=== PATIENT | female | born 1995 | race Caucasian/White ===

== ENCOUNTER 2024-11-12 14:31 | Emergency (ER) | payer BC, SELFPAY ==
--- OUTSIDE RECORDS SUMMARY | 2024-10-21 14:00 | XMS_ITS | Encounter Summary ---
Author Organization [facility] Address [address] [place] [address]. [place] [address] Care Team Providers Care Windshield Repair Technician Name Role Phone No Ref-Primary, Physician Primary Care Provider Chiqui Johnson APRN SWAHILI TEACHER Unavailable [phone] Uriel Borjas MD Unavailable Nely Etienne PA-C Unavailable Renetta Rudolph APRN SWAHILI TEACHER Unavailable [phone] Inna Arriaga MD Unavailable [phone] Reason for Referral * Diagnostic Imaging Ultrasound (Routine) - Pending Review Specialty Diagnoses / Procedures Referred By Conthardepe t Referred To Contact Radiology. Diagnoses care, subsequent , unspecified trimester Procedures US OB <14 Weeks w Transvaginal Single ([id number]) Inna Arriaga MD [address] [place] [address] Phone: tel: fax: Referral ID Status Reason Start Date Expiration Date V isits Requested Visits Authorized [id number] Pending Review 10/21/2024 10/21/2025 1 1 Reason for Visit * Reason Comments Care Encounter Details Date Type Department Care Team (Late st Contact Info) Description 10/21/2024 2:00 PM CDT Virtual Visit [facility] [address] [place] [address] care, subsequent , unspecified trimester (Primary Dx) Social History Tobacco Use Types Packs/Day Years Used Date Smoking Tobacco: Former Cigarettes Q uit: 01/10/2023 Pipe Cigars Passive Smoke Exposure: Past Smokeless Tobacco: Former Quit: 01/10/2023 Alcohol Use Standard Drinks/Week Comments Not Currently 0 (1 standard drink = 0.6 oz pur e alcohol) Maybe a drink every 2 months Social Connection and Isolat ion Panel [NHANES] Answer Date Recorded Frequency of Communication w ith Friends and Family Not on file 07/19/2024 How often do you get togethe r with friends or relatives? More than three times a week 07/19/2024 Attends Spiritism Services Not on file 07/19 Active Member of Clubs or Organizations Not on f ile 07/19/2024 Attends Club or Organization Meetings Not on lenin e 07/19/2024 Marital Status Not on file 07/19/2024 PHQ-2 Answer Date Recorded PHQ-2 Score 0 07/20/2024 [facility] - Occupational Stress Questionnaire Answer Date Recorded Do you feel stress - tense, restless, nervous, or anxious, or unable to sleep at night because your mind is troubled all the time - these days? Only a little 07/19/2024 Exercise Vital Sign Answer Date Recorde d On average, how many days pe r week do you engage in moderate to strenuous exercise (like a brisk walk)? 4 days 07/19/2024 On average, how many minutes do you engage in exercise at this level? 60 min 07/19/2024 Food Insecurity Answer Date Recorded Within the past 12 months, d id you worry that your food would run out before you got money to buy more? No 07/19/2024 Within the past 12 months, d id the food you bought just not last and you didn t have money to get more? No 07/19/2024 Housing Stability Answer Date Recorded Do you have housing? (Housin g is defined as stable permanent housing and does not include staying outside in a car, in a tent, in an abandoned building, in an overnight [place] [facility], or couch-surfing.) No 07/19/2024 Are you worried about losing your housing? No 07/19/2024 Financial Resource Strain Answer Date R ecorded Within the past 12 months, h ave you or your family members you live with been unable to get utilities (heat, electricity) when it was really needed? No 07/19/2024 Transportation Needs Answer Date Record ed Within the past 12 months, h as lack of transportation kept you from medical appointments, getting your medicines, non-medical meetings or appointments, work, or from getting things that you need? No 07/19/2024 Estimated Date of Delivery Comme nts Yes 06/28/2025 Based on last me nstrual period of 09/21/2024 (Exact Date), regular- every 32 days Sex and Gender Information Value Date Recorded Sex Assigned at Female 03/30/2024 8:24 AM CDT Legal Sex Female 10:27 AM CDT Gender Identity Female 03/30/2024 8:24 AM CDT Sexual Orientation Straight 03/30/2024 8: 24 AM CDT Occupation Industry Job Start Date Job End Date not working Not on file Not on file Not on file documented as of this encounter Progress Notes * Sheryl Espinoza RN - 10/21/2024 2:00 PM CDT NPN nurse visit done over the phone. Pt will be given NPN folder and book at her upcoming appt. Discussed optional screening available to assess chromosomal anomalies. Questions answered. Informed pt of the clinic structure (on-call does deliveries for the day, may be male or female doctor). Ptadvised to call the clinic if she has any questions or concerns related to her . labs will be obtained at her upcoming appt. New visit scheduled on 11/12/[address] Arriaga. 4w2d Menstrual cycles: regular every 32 days Date of positive test: 10/17/24 Medications stopped upon pos HPT: none Last pap: 11/11/23 NIL Does not want to know gender. May be moving to [place]. Patient supplied answers from flow sheet for: OB Questionnaire. Past Medical History Have you ever recieved care for your mental health? : No Have you ever been in a major accident or suffered serious trauma?: No Within the last year, has anyone hit, slapped, kicked or otherwise hurt you?: No In the last year, has anyone forced you to have sex when you didn't want to?: No Past Medical History 2 Have you ever received a blood transfusion?: No Would you accept a blood transfusion if was medically recommended?: Yes (prefers that she get her husbands blood, same blood type) Does anyone in your home smoke?: (!) Yes Is your blood type Rh negative?: No Have you ever breastfed?: (!) Yes Have you been hospitalized for a nonsurgical reason excluding normal delivery?: No Have you ever had an abnormal pap smear?: No Past Medical History (Continued) Do you have a history of abnormalities of the uterus?: No Did your mother take PHYLICIA or any other hormones when she was with you?: Unknown Do you have any other problems we have not asked about which you feel may be important to this ?: No documented in this encounter Plan of Treatment Upcoming Encounters Date Type Department Care Team (Late st Contact Info) Description 11/17/2024 11:00 AM CDT Ancillary Procedure [address] [place] [address] 11/17/2024 11:45 AM CDT Lab [facility] [address] [facility] [address] [place] [phone] 12/03/2024 1:00 PM CDT Office Visit [facility] [address] [place] [address] Inna Arriaga MD [address] [place] [address] Scheduled Orders Name Type Priority Associated Diagnoses Orde r Schedule ABO/Rh type and screen Lab Panel Routine care, subsequent , unspecified trimester Expected: 10/21/2024, Expires: 10/21/2025 Hepatitis B surface antigen Lab Routine care, subsequent , unspecified trimester Expected: 10/21/2024, Expires: 10/21/2025 CBC with platelets Lab Routine care, subsequent , unspecified trimester Expected: 10/21/2024, Expires: 10/21/2025 HIV Antigen Antibody Combo Lab Routine care, subsequent , unspecified trimester Expected: 10/21/2024, Expires: 10/21/2025 Rubella Antibody IgG Lab Routine care, subsequent , unspecified trimester Expected: 10/21/2024, Expires: 10/21/2025 Treponema Abs w Reflex to RPR and Titer Lab Routine care, subsequent , unspecified trimester Expected: 10/21/2024, Expires: 10/21/2025 Urine Culture Aerobic Bacterial Microbiology Routine care, subsequent , unspecified trimester Expected: 10/21/2024, Expires: 10/21/2025 Hemoglobin A1c Lab Routine care, subsequent , unspecified trimester Expected: 10/21/2024, Expires: 10/21/2025 US OB <14 Weeks w Transvaginal Single ([id number]) Imaging Routine care, subsequent , unspecified trimester Expected: 10/21/2024, Expires: 01/19/2025 Hepatitis C Screen Reflex to HCV RNA Quant and Genotype Lab Routine care, subsequent , unspecified trimester Expected: 10/21/2024 (Approximate), Expires: 10/21/2025 documented as of this encounter Visit Diagnoses Diagnosis care, subsequent , unspecified trimester- Primary documented in this encounter Care Teams Windshield Repair Technician Relationship Specialty Start Date End Date No Ref-Primary, Physician PCP - General 03/10/24 Chiqui Johnson, EVAPORATOR OPERATOR SWAHILI TEACHER [address] [place] [address] Assigned PCP 04/15/24 Uriel Borjas MD [address] [facility] [address] [place] [address] Allergy & Immunology 07/21/24 Nely Etienne PA-C [address] [facility] [place] [address] Physician Printing Table Hand retail stock clerk 07/21/24 Renetta Rudolph APRN CNP [address] [facility] [address] [place], [place] [address] Assigned OBGYN Provider 10/14/24 Inna Arriaga MD [address] [place] [address] retail stock clerk 10/19/24 documented as of this encounter
[2024-11-12 14:39] VITALS: BP 108/72; PULSE 91; RESP 16; TEMP 36.5; O2SAT 97; BMI 29.0
[2024-11-12] MEDS: ONDANSETRON 2 MG/ML inj 4 MG IVP (15:46)
[2024-11-12] MEDS: 0.9 % SODIUM CHLORIDE 1000 ml 1,000 ML IV (15:46)
[2024-11-12 15:51] LABS: Basophils Absolute Auto 0.02 K/uL (0.00-0.30); Basophils Percent Auto 0.2 % (0.0-3.0); Eosinophils Absolute Auto 0.02 K/uL (0.00-0.50); Eosinophils Percent Auto 0.2 % (0.0-7.0); Hematocrit 37.7 % (33.0-51.0); Hemoglobin* 12.7 gm/dL (12.0-16.0); Immature Granulocytes Abs Auto 0.01 K/uL (0.00-0.30); Immature Granulocytes Pct Auto 0.1 %; Lymphocytes Percent Auto 10.5 % (20-44); Mean Corpuscular HGB Conc 34 gm/dL (32-36); Mean Corpuscular Hemoglobin 31 pg (26-34); Mean Corpuscular Volume 92 fL (80-100); Monocytes Percent Auto 4.6 % (0.0-11.0); Neutrophils Percent Auto 84.4 % (42.0-72.0); Platelet Count* 304 K/uL (140-440); RDW Coefficient of Variation % 13.6 % (11.5-15.5); White Blood Count* 8.07 K/uL (4.50-11.00)
--- NOTE | 2024-11-12 15:51 | ED_ITS ---
HPI - General Adult General Chief complaint: Nausea/Vomiting Stated complaint: 6 weeks , vomiting Time Seen by Provider: 11/12/24 15:21 Source: patient Mode of arrival: ambulatory Limitations: no limitations History of Present Illness HPI narrative: 29-year-old female at 6-7 weeks gestation presenting today with vomiting and nausea. Patient states she has had nausea throughout her entire b ut the vomiting started today. She vomited multiple times and unable to keep anything down. She denies fevers or chills. She denies any new abdominal pain. She denies vaginal discharge states that she has rare small amount of vaginal spotting that is been present throughout the entire . She describes it as pink spots every now and then. She denies any sick contacts that she is aware of. No blood in her vomitus. No diarrhea. No dysuria, increased urinary frequency or urgency. Patient also complains of a migraine headache she has had for 3 days. She denies this being new, does state that she has a history of migraines. Has not been able to take anything for it as she does not know what she can safely take while . Complains of light sensitivity. No confusion, difficulty with word finding or forming sentences. Denies any neurologic deficits. Related Data Previous Rx's ?Medication ?Instructions ?Recorded ondansetron HCl 4 mg tablet 4 mg PO TID PRN nausea and 11/12/24 vomiting #10 tabs Allergies Allergy/AdvReac Type Severity Reaction Status Date / Time ciprofloxacin (From Cipro) Allergy Intermediate Verified 11/12/24 14:37 Review of Systems Status of ROS: Reports: 10 or more systems reviewed and unremarkable except as noted in History and below Exam Narrative: Exam Narrative: Well-nourished well-developed patient in no acute distress. Alert and oriented. Answers questions appropriately. Mood and affect are appropriate. Thoughts are goal oriented and rational. No tangential or magical thinking noted. Patient speaks in full sentences without needing to catch her breath. HEENT: Normocephalic atraumatic. Pupils are equally round reactive to light. Extraocular muscles are intact. Conjunctivae are moist without any icterus noted. Moist mucous membranes. Cardiovascular: Heart is regular rate and rhythm S1 and S2 are present without any murmurs. Lungs: Clear to auscultation bilaterally no wheezes rhonchi or rales are appreciated. Patient takes deep breaths without any discomfort. Abdomen: Soft and nontender nondistended with normal bowel sounds. Extremities: Bilateral lower extremities are without edema. Skin: Well perfused without any obvious rashes. Const: Vital Signs, click to edit/add: Vital Signs - 24 hr 11/12/24 14:39 Temperature 97.7 F Pulse Rate [Pulse Oximeter] 91 Respiratory Rate 16 Blood Pressure [Ri ght Upper Arm] 108/72 Pulse Oximetry 97 Oxygen Delivery Me thod Room Air Course Course ED Course: IV is established and patient was given a L of normal saline, IV Zofran and oral Tylenol No. 3 for her headache. We did proceed with some blood work given the fact that this is the 1st time patient has had vomiting in her . CBC is unremarkable. Chemistries and LFTs are normal. Patient felt significantly better after treatment, was smacking on tortilla chips. Vital Signs Vital signs: Initial Vital Signs Temperature 97.7 F 11/12/24 14:39 Temperature Source Temporal Artery Scan 11/12/24 14:39 Pulse Rate 91 11/12/24 14:39 Respiratory Rate 16 11/12/24 14:39 Blood Pressure 108/72 11/12/24 14:39 Blood Pressure Mean 84 11/12/24 14:39 Blood Pressure Position Sitting 11/12/24 14:39 Pulse Oximetry 97 11/12/24 14:39 Oxygen Delivery Method Room Air 11/12/24 14:39 Vital Signs Temperature 97.7 F 11/12/24 14:39 Pulse Rate 91 11/12/24 14:39 Respiratory Rate 16 11/12/24 14:39 Blood Pressure 108/72 11/12/24 14:39 Pulse Oximetry 97 11/12/24 14:39 Oxygen Delivery Method Room Air 11/12/24 14:39 Temperature 97.7 F 11/12/24 14:39 Pulse Rate 91 11/12/24 14:39 Respiratory Rate 16 11/12/24 14:39 Blood Pressure 108/72 11/12/24 14:39 Pulse Oximetry 97 11/12/24 14:39 Oxygen Delivery Method Room Air 11/12/24 14:39 Medications Administered Medications: Generic Name Dose Route Start Last Admin Trade Name Freq PRN Reason Stop Dose Admin Sodium Chloride 1,000 mls @ 1,000 mls/hr 11/12/24 15:30 11/12/24 15:46 0.9 % Sodium Chloride 1000 Ml IV 11/12/24 16:29 1,000 mls/hr .Q1H DEBBIE Administration Discontinued Medications Generic Name Dose Route Start Last Admin Trade Name Ele PRN Reason Stop Dose Admin Acetaminophen/Codeine Phosphate 2 tab 11/12/24 15:33 11/12/24 15:46 Acetaminophen/Codeine 300 Mg/30 Mg Tablet PO 11/12/24 15:34 2 tab ONCE ONE Administration Ondansetron HCl 4 mg 11/12/24 15:22 11/12/24 15:46 Ondansetron 2 Mg/Ml Inj IVP 11/12/24 15:23 4 mg ONCE ONE Administration Medical Decision Making MDM Narrative Medical decision making narrative: Nausea vomiting in treated per above. Will send the patient home with Zofran to take as needed. Migraine headache. Resolved. Lab Data Lab results reviewed: Yes I reviewed the patient's lab results Labs: Lab Results 11/12/24 Range/Units 15:44 WBC 8.07 (4.50-11.00) K/uL RBC 4.10 (4.00-5.20) m/uL Hgb 12.7 (12.0-16.0) gm/dL Hct 37.7 (33.0-51.0) % MCV 92 (80-100) fL MCH 31 (26-34) pg MCHC 34 (32-36) gm/dL RDW Coeff of Cristela 13.6 (11.5-15.5) % Plt Count 304 (140-440) K/uL Neut % (Auto) 84.4 H (42.0-72.0) % Lymph % (Auto) 10.5 L (20-44) % Hudspeth % (Auto) 4.6 (0.0-11.0) % Eos % (Auto) 0.2 (0.0-7.0) % Baso % (Auto) 0.2 (0.0-3.0) % Neut # (Auto) 6.80 (1.7-7.0) K/uL Lymph # (Auto) 0.80 L (0.90-2.90) K/uL Hudspeth # (Auto) 0.40 (0.00-0.90) K/UL Eos # (Auto) 0.02 (0.00-0.50) K/uL Baso # (Auto) 0.02 (0.00-0.30) K/uL Abs Immat Gran (auto) 0.01 (0.00-0.30) K/uL Imm/Tot Granulo (auto) 0.1 % Sodium 135 (135-149) mmol/L Potassium 3.9 (3.6-5.1) mmol/L Chloride 101 (96-114) mmol/L Carbon Dioxide 26 (20-32) mmol/L Anion Gap 8 (7-15) mEq/L BUN 12 (5-24) mg/dL Creatinine 0.6 (0.5-1.5) mg/dL Estimated Creat Clear 110.41 Estimated GFR 125 ml/min Glucose 89 (60-115) mg/dL Calcium 8.9 (8.4-10.6) mg/dL Total Bilirubin 0.5 (0.1-1.5) mg/dL Direct Bilirubin 0.2 (0.0-0.5) mg/dL AST 25 (12-35) U/L ALT 25 (4-35) U/L Alkaline Phosphatase 42 (40-150) U/L Total Protein 7.4 (6.0-8.3) g/dL Albumin 4.4 (3.3-5.0) g/dL Lipase 54 (23-300) U/L Discharge Plan Discharge Clinical Impression: Vomiting affecting , Migraine Patient Disposition: Home, Self-Care Condition: Improved Additional Instructions: You will be sent home with Zofran (ondansetron) today which is the medicine for nausea and vomiting. Take as needed/as directed. Follow-up with OBGYN as scheduled. Prescriptions: New ondansetron HCl 4 mg tablet 4 mg PO TID PRN (Reason: nausea and vomiting) Qty: 10 0RF Follow Up/Referrals: Provider,Not a Local [Primary Care Provider, Family Practice] Stand Alone Forms: Mobilitusth Info Instructions
[2024-11-12 15:53] LABS: Slide Review Reflex No
[2024-11-12 16:03] LABS: Albumin* 4.4 g/dL (3.3-5.0)
[2024-11-12 16:04] LABS: Chloride* 101 mmol/L (96-114); Potassium* 3.9 mmol/L (3.6-5.1); Sodium* 135 mmol/L (135-149)
[2024-11-12 16:06] LABS: Alanine Aminotransferase* 25 U/L (4-35); Alkaline Phosphatase* 42 U/L (40-150); Anion Gap 8 mEq/L (7-15); Aspartate Amino Transferase* 25 U/L (12-35); Bilirubin Direct* 0.2 mg/dL (0.0-0.5); Bilirubin Total* 0.5 mg/dL (0.1-1.5); Blood Urea Nitrogen* 12 mg/dL (5-24); Carbon Dioxide* 26 mmol/L (20-32); Creatinine* 0.6 mg/dL (0.5-1.5); Est. Creatinine Clearance* 110.41; Estimated Glomerular Filt Rate 125 ml/min; Total Protein* 7.4 g/dL (6.0-8.3)
[2024-11-12 16:07] LABS: Calcium* 8.9 mg/dL (8.4-10.6); Glucose* 89 mg/dL (60-115); Lipase* 54 U/L (23-300)
--- OUTSIDE RECORDS SUMMARY | 2024-11-12 16:25 | XMS_ITS | Clinical Summary ---
Author Organization [facility] Address [address] [place] [address] Care Team Providers Care Associate Vice President Name Role Phone No Ref-Primary, Physician Primary Care Provider Chiqui Johnson APRN BUTTERMAKER CONTINUOUS CHURN Unavailable [phone] Uriel Borjas MD Unavailable Nely Etienne PA-C Unavailable Renetta Rudolph APRN BUTTERMAKER CONTINUOUS CHURN Unavailable Inna Arriaga MD Unavailable [phone] Allergies Active Allergy Reactions Criticality Noted Date Comments Ciprofloxacin 07/20/2024 Family members have had issues with his med, pt prefers not to take this Medications fluticasone (FLONASE) 50 MCG/ACT nasal sprayIndicatio ns:Non-seasona l allergic rhinitis due to pollen Holman 1 spray into both nostrils daily. 9.9 mL 11 5 025 Discontinued Magnesium Malate 1250 (141.7 Mg) MG TABS 5 025 Discontinued Active Problems Problem Noted Date Diagnosed Date Polyhydramnios 10/21/2024 Overview (10/21/2024): 36.4 weeks Herpes simplex 02/18/2023 Abnormal microbiological fin dings in specimens from other organs, systems and tissues 09/26/2022 Carrier of group B Streptococcus 12/04/2021 Overview (10/21/2024): Removal Reason: previous preg Family history of breast cancer 12/01/2021 Attention deficit hyperactivity disorder 022 Estimated Date of Delivery Comme nts Yes 06/28/2025 Based on last me nstrual period of 09/21/2024 (Exact Date), regular- every 32 days Resolved Problems Problem Noted Date Diagnosed Date Resolved Date Rectocele 04/29/2024 07/17/2024 Encounters Date Type Department Care Team Description 11/12/2024 Telephone [facility] [address] [place] [address] Inna Arriaga MD Symptoms; Care 11/12/2024 Telephone [facility] [address] [facility] [address] [place] [address] Inna Arriaga MD 10/21/2024 2:00 PM CDT Virtual Visit [facility] [address] [place] [address] care, subsequent , unspecified trimester (Primary Dx) 10/21/2024 MyC Medical Advice [facility] [address] [place] [address] Sheryl Espinoza RN 10/20/2024 MyC Medical Advice [facility] [address] [place] [phone] Nel Isabel MA from Last 3 Months Immunizations Immunization Administration Dates Next Due TDAP (Adacel,Boostrix) 12/10/2020 Family History Medical History Relation Comments Depression Father Diabetes Father Type 2 Hypertension Father Obesity Father Breast Cancer Maternal Grandmother Other Cancer Maternal Grandmother Anxiety Disorder Mother Depression Mother Hypertension Mother Mental Illness Mother Obesity Mother Thyroid Disease Mother Depression Sister Diabetes Sister Pre diabetic Obesity Sister Relation Status Comments Father Alive Maternal Grandmother Mother Alive Sister Alive Social History Tobacco Use Types Packs/Day Years [...] than three times a week 07/19/2024 Attends Congregational Services Not on file 07/19 Active Member of Clubs or Organizations Not on f ile 07/19/2024 Attends Club or Organization Meetings Not on lenin e 07/19/2024 Marital Status Not on file 07/19/2024 PHQ-2 Answer Date Recorded PHQ-2 Score 0 07/20/2024 [facility] - [...] in an abandoned building, in an overnight residential, or couch-surfing.) No 07/19/2024 Are you worried [...] file Not on file Not on file Last Filed Vital Signs Vital Sign Reading Time Taken Comments Blood Pressure 120/75 07/28/2024 9:14 AM WEIGHT ENGINEER Pulse 66 07/20/2024 7:51 AM WEIGHT ENGINEER Temperature 37.2 C (99 F) 07/20/2024 7:51 AM WEIGHT ENGINEER Respiratory Rate 16 07/20/2024 7:51 AM WEIGHT ENGINEER Oxygen Saturation 98% 07/20/2024 7:51 AM WEIGHT ENGINEER Inhaled Oxygen Concentration - - Weight 77.8 kg (171 lb 9.6 oz) 07/28/2024 9:14 A M WEIGHT ENGINEER Height 158.8 cm (5' 2.52) 07/28/2024 9:14 AM CS T Body Mass Index 30.87 07/28/2024 9:14 AM WEIGHT ENGINEER Plan of Treatment Upcoming Encounters Date Type Department Care Team (Late st Contact Info) Description 11/17/2024 11:00 AM CDT Ancillary Procedure [facility] [address] [facility] [address] [place] [phone] 11/17/2024 11:45 AM CDT Lab [facility] [address] [facility] [address] [place] [address] 12/03/2024 1:00 PM CDT Office Visit [facility] [address] [facility] [address] [place] [address] Inna Arriaga MD [address] [place] [address] Health Maintenance Due Date Last Done Comments HIV SCREENING 10/31/2011 HEPATITIS C SCREENING 2014 HEPATITIS B IMMUNIZATION (1 of 3 - 19+ 3-dose series) 10/31/2015 COVID-19 Vaccine (1 - 2023-2 5 season) 2024 MATERNAL SCREENING DISCUSSION 11/30/2024 INFLUENZA VACCINE (Season Ended) 2025 TDAP () IMMUNIZATION 03/29/2025 12/10/2020 RSV VACCINE (1 - Risk 1-dose series) 05/03/2025 ANNUAL REVIEW OF HM ORDERS 07/20/2025 07/20/2024 YEARLY PREVENTIVE VISIT 07/20/2025 07/20/19 25, 10/09/2019 PAP 11/10/2026 11/11/2023 ADVANCE CARE PLANNING 07/20/2029 07/20/2024 DTAP/TDAP/TD IMMUNIZATION (2 - Td or Tdap) 12/10/2030 12/10/2020 ZOSTER IMMUNIZATION (1 of 2) 2046 PHQ-2 (once per calendar year) Completed 07/20/2024, 04/06/2024 HPV IMMUNIZATION Aged Out No longer e ligible based on patient's age to complete this topic MENINGITIS IMMUNIZATION Aged Out No l onger eligible based on patient's age to complete this topic Pneumococcal Vaccine: Pediatrics (0 to 5 Years) and At-Risk Patients (6 to 49 Years) Aged Out No longer eligible b ased on patient's age to complete this topic Procedures Procedure Name Priority Date/Time Associated Diagnosis Comments PAP SMEAR - HIM PATIENT REPORTED Routine 11/11/2023 from Last 3 Months or Most Recently Relevant to Health Maintenance Results * PAP Smear - HIM Patient Reported (11/11/2023) PAP Smear - HIM Patient Reported Unknown 11/11/2023 Narrative Nafisa العراقي - 11/11/2023 See encounter dated - 08/10/2024 Patient Reported LABORATORY Final Result from Last 3 Months or Most Recently Relevant to Health Maintenance Insurance Care Teams Associate Vice President Relationship Specialty Start Date End Date No Ref-Primary, Physician PCP - General 03/10/24 Chiqui Johnson APRN BUTTERMAKER CONTINUOUS CHURN [address] [facility] [place] [address] Assigned PCP 04/15/24 Uriel Borjas MD [address] [address] Allergy & Immunology 07/21/24 Nely Etienne, NGOC [address] [place] [address] Physician Matrix Worker grain trader 07/21/24 Renetta Rudolph APRN [facility] [address], [place] [address] Assigned OBGYN Provider 10/14/24 Inna Arriaga MD [address] [place] [address] grain trader 10/19/24
--- OUTSIDE RECORDS SUMMARY | 2024-11-12 16:25 | XMS_ITS | Encounter Summary ---
Author Organization [facility] Address [address] [place] [address]. [place] [address] Care Team Providers Care Food Specialist Name Role Phone No Ref-Primary, Physician Primary Care Provider Chiqui Johnson APRN DRY WALL NAILER Unavailable [phone] Uriel Borjas MD Unavailable Nely Etienne PA-C Unavailable [phone] Renetta Rudolph APRN DRY WALL NAILER Unavailable Inna Arriaga MD Unavailable Encounter Details Date Type Department Care Team (Late st Contact Info) Description 11/12/2024 Telephone [facility] [address] [facility] [address] [place] [phone] Inna Arriaga MD [address] [place] [address] Social History Tobacco Use Types Packs/Day Years [...] than three times a week 07/19/2024 Attends Adventism Services Not on file 07/19 Active Member of Clubs or Organizations Not on f ile 07/19/2024 Attends Club or Organization Meetings Not on lenin e 07/19/2024 Marital Status Not on file 07/19/2024 PHQ-2 Answer Date Recorded PHQ-2 Score 0 07/20/2024 [facility] of Occupat ional Health - Occupational Stress [...] Answer Date Recorded Do you have housing? (Lupe g is defined as stable permanent housing and does not include staying outside in a car, in a tent, in an abandoned building, in an overnight senior living, or couch-surfing.) No 07/19/2024 Are you worried [...] on file documented as of this encounter Miscellaneous Notes * Telephone Encounter - Paramjit Kourtney - 11/12/2024 1:19 PM CDT Caller reporting the following red-flag symptom(s): pt - severe migrains back to back, vomiting and dizziness Per the system red-flag symptom policy, patient was instructed to: speak with a Registered Nurse Action: Patient warm transferred to a Registered Nurse documented in this encounter Plan of Treatment Upcoming Encounters Date Type Department Care Team (Late st Contact Info) Description 11/17/2024 11:00 AM CDT Ancillary Procedure [address] [place] [phone] 11/17/2024 11:45 AM CDT Lab [facility] [address] [place] [address] [address] [place] [phone] 12/03/2024 1:00 PM CDT Office Visit [facility]'s [address] [place] [phone] Inna Arriaga MD [address] [place] [address] documented as of this encounter Visit Diagnoses Not on filedocumented in this encounter Care Teams Food Specialist Relationship Specialty Start Date End Date No Ref-Primary, Physician PCP - General 03/10/24 Chiqui Johnson APRN DRY WALL NAILER [address] [place] [address] Assigned PCP 04/15/24 Uriel Borjas MD [address] [facility] [address] [place], [place] [address] Allergy & Immunology 07/21/24 Nely Etienne PA-C [address] [place], [place] [address] Physician Steel Handler land leases and rentals manager 07/21/24 Renetta Rudolph APRN DRY WALL NAILER [address] [place], [place] [address] Assigned OBGYN Provider 10/14/24 Inna Arriaga MD [address] [place], [place] [address] land leases and rentals manager 10/19/24 documented as of this encounter
--- OUTSIDE RECORDS SUMMARY | 2024-11-12 16:25 | XMS_ITS | Encounter Summary ---
Author Organization [facility] Address [address] [place] [address]. [place] [address] Care Team Providers Care Equipment Oiler Name Role Phone No Ref-Primary, Physician Primary Care Provider Chiqui Johnson APRN FUNCTIONAL SUPPORT ANALYST Unavailable [phone] Uriel Borjas MD Unavailable Nely Etienne PA-C Unavailable Renetta Rudolph APRN FUNCTIONAL SUPPORT ANALYST Unavailable Inna Arriaga MD Unavailable Reason for Visit * Reason Onset Date Comments Symptoms 11/12/2024 Care 11/12/2024 Encounter Details Date Type Department Care Team (Late st Contact Info) Description 11/12/2024 Telephone [facility] [address] [facility] [address] [place] [address] Inna Arriaga MD [address] [place] [address] Symptoms; Care Social History Tobacco Use Types Packs/Day Years [...] than three times a week 07/19/2024 Attends Baptism Services Not on file 07/19 Active Member of Clubs or Organizations Not on f ile 07/19/2024 Attends Club or Organization Meetings Not on lenin e 07/19/2024 Marital Status Not on file 07/19/2024 PHQ-2 Answer Date Recorded PHQ-2 Score 0 07/20/2024 [facility] of Occupat ional Health - Occupational [...] encounter Miscellaneous Notes * Telephone Encounter - Mery Ruiz RN - 11/12/2024 1:28 PM CDT Pt called in with nausea and vomiting as well as migraine 7w3d Pt has been having nausea and vomiting for the past week. She also states that she got migraine this morning and can't seem to kick it. Hx of migraines with auras that make vision blurry. At this time she is having blurry vision and she said it's frustrating. States she has never taken anything for migraines in the past, just rested and waited it out but she didn't know with the nausea and vomiting. Advised that nausea and vomiting could be from or migraine hard to say but because she was having it before most likely related. Went over things to try like Unisom/B6, haley, small frequent meals and hydration. Recommended to try Tylenol with small amount to caffeine to help with headache but she did not wantto try caffeine. Advised to try Tylenol as able and to rest in cool, dark environment with very lowstimulation. Advised that if she was unable to keep any fluids down for greater than 12 hours, felt extremely weak or dizzy and that she was going to pass out she needed to be evaluated in ED. Advised that if migraine does not improve or gets worse, vision gets worse she needs to be evaluated in ED. She verbalized understanding and will call back with any other concerns or needs. MONICA Mayberry documented in this encounter Plan of Treatment Upcoming Encounters Date Type Department Care Team (Late st Contact Info) Description 11/17/2024 11:00 AM CDT Ancillary Procedure [facility] [address] [place] [phone] 11/17/2024 11:45 AM CDT Lab [facility] [address] [facility] [address] [place] [phone] 12/03/2024 1:00 PM CDT Office Visit [facility] [address] [facility] [address] [place] [phone] Inna Arriaga MD [address] [place] [address] documented as of this encounter Visit Diagnoses Not on filedocumented in this encounter Care Teams Equipment Oiler Relationship Specialty Start Date End Date No Ref-Primary, Physician PCP - General 03/10/24 Chiqui Johnson WEALTH MANAGEMENT DIRECTOR FUNCTIONAL SUPPORT ANALYST [address] [place] [address] Assigned PCP 04/15/24 Uriel Borjas MD [address] [facility] [address] [place], [place] [address] Allergy & Immunology 07/21/24 Nely Etienne PA-C [address] [place], [place] [address] Physician Mixing And Molding Machine Operator mixed animal veterinarian 07/21/24 Renetta Rudolph APRN FUNCTIONAL SUPPORT ANALYST [address], [place] [address] Assigned OBGYN Provider 10/14/24 Inna Arriaga MD [address] [place] [address] mixed animal veterinarian 10/19/24 documented as of this encounter
--- OUTSIDE RECORDS SUMMARY | 2024-11-12 16:25 | XMS_ITS | Encounter Summary ---
Author Organization [facility] Address [address] [place] [address] Care Team Providers Care Lace Mender Name Role Phone No Ref-Primary, Physician Primary Care Provider Chiqui Johnson APRN SANDSTONE SPLITTER Unavailable [phone] Uriel Borjas MD Unavailable Nely Etienne PA-C Unavailable Renetta Rudolph APRN SANDSTONE SPLITTER Unavailable Inna Arriaga MD Unavailable Encounter Details Date Type Department Care Team (Late st Contact Info) Description 10/20/2024 MyC Medical Advice [facility] Specialty [address] [phone] Nel Isabel MA Social History Tobacco Use Types Packs/Day Years [...] 07/19/2024 Attends Adventism Services Not on file 01/26 /2025 Active Member of Clubs or Organizations Not on f ile 07/19/2024 Attends Club or Organization Meetings Not on lenin e 07/19/2024 Marital Status Not on file 07/19/2024 PHQ-2 Answer Date Recorded PHQ-2 Score 0 07/20/2024 [facility] of Occupat ional Health - Occupational Stress [...] getting things that you need? No 07/19/2024 Comments No Sex and Gender Information Value Date Recorded Sex Assigned at Female 03/30/2024 8:24 AM CDT Legal Sex Female 10:27 AM CDT Gender Identity Female 03/30/2024 8:24 AM CDT Sexual Orientation Straight 03/30/2024 8: 24 AM CDT documented as of this encounter Plan of Treatment Upcoming Encounters Date Type Department Care Team (Late st Contact Info) Description 11/17/2024 11:00 AM CDT Ancillary Procedure [facility] [address] [facility] [address] [place] [phone] 11/17/2024 11:45 AM CDT Lab [facility] [address] [facility] [address] [place] [phone] 12/03/2024 1:00 PM CDT Office Visit [facility] Women's [facility] [address] [facility] [address] [place] [phone] Inna Arriaga MD [address] [place], [place] [phone] documented as of this encounter Visit Diagnoses Not on filedocumented in this encounter Care Teams Lace Mender Relationship Specialty Start Date End Date No Ref-Primary, Physician PCP - General 03/10/24 Chiqui Johnson APRN SANDSTONE SPLITTER [address] [place] [address] Assigned PCP 04/15/24 Uriel Borjas MD [address] [facility] 200 [place] [address] Allergy & Immunology 07/21/24 Nely Etienne PA-C [address] [place] [address] Physician Pet Store Merchandiser grinder chipper 07/21/24 Renetta Rudolph APRN SANDSTONE SPLITTER [address] [place], [place] [address] Assigned OBGYN Provider 10/14/24 Inna Arriaga MD [address] [place] [address] grinder chipper 10/19/24 documented as of this encounter
--- OUTSIDE RECORDS SUMMARY | 2024-11-12 16:25 | XMS_ITS | Encounter Summary ---
Author Organization [facility] Address [address] [place] [address] Care Team Providers Care Heavy Mobile Equipment Repairer Name Role Phone No Ref-Primary, Physician Primary Care Provider Chiqui Johnson APRN FARM CROPS TEACHER Unavailable [phone] Uriel Borjas MD Unavailable Nely Etienne PA-C Unavailable Renetta Rudolph APRN FARM CROPS TEACHER Unavailable Inna Arriaga MD Unavailable Encounter Details Date Type Department Care Team (Late st Contact Info) Description 10/21/2024 MyC Medical Advice [facility] Women's [address] [place] [phone] Sheryl Espinoza, RN Social History Tobacco Use Types Packs/Day Years [...] than three times a week 07/19/2024 Attends Tenriism Services Not on file 07/19 Active Member of Clubs or Organizations Not on f ile 07/19/2024 Attends Club or Organization Meetings Not on lenin e 07/19/2024 Marital Status Not on file 07/19/2024 PHQ-2 Answer Date Recorded PHQ-2 Score 0 07/20/2024 [facility] - Occupational Stress Questionnaire Answer Date Recorded [...] in an abandoned building, in an overnight prison, or couch-surfing.) No 07/19/2024 Are you worried [...] on file documented as of this encounter Plan of Treatment Upcoming Encounters Date Type Department Care Team (Late st Contact Info) Description 11/17/2024 11:00 AM CDT Ancillary Procedure [facility] [address] [facility] [address] [place] [phone] 11/17/2024 11:45 AM CDT Lab [facility] Laboratory [address] [place] [address] [address] [place] [phone] 12/03/2024 1:00 PM CDT Office Visit [facility] Women's [address] [place] [phone] Inna Arriaga MD [address] [place], [place] [address] documented as of this encounter Visit Diagnoses Not on filedocumented in this encounter Care Teams Heavy Mobile Equipment Repairer Relationship Specialty Start Date End Date No Ref-Primary, Physician PCP - General 03/10/24 Chiqui Johnson APRN FARM CROPS TEACHER [address] [place] [address] Assigned PCP 04/15/24 Uriel Borjas MD [address] [place] [place] [address] Allergy & Immunology 07/21/24 Nely Etienne PA-C [address] [place] [place] [address] Physician Can Line Examiner food service sales representatives 07/21/24 Renetta Rudolph APRN FARM CROPS TEACHER [address] [place], [place] [address] Assigned OBGYN Provider 10/14/24 Inna Arriaga MD [address] [place], [place] [address] food service sales representatives 10/19/24 documented as of this encounter
[2024-11-12 16:59] VITALS: BP 110/67; PULSE 65; RESP 16
== END 2024-11-12 17:00 | disposition home or self-care (01) ==
PROVIDERS: Emergency Provider Family Medicine
DX: O21.9 Vomiting of pregnancy, unspecified (principal); G43.909 Migraine, unspecified, not intractable, without status migrainosus; Z3A.01 Less than 8 weeks gestation of pregnancy
CPT/HCPCS: 36415; 80048; 80076; 83690; 85025; 96374; 99284; A9270; J2405; J7030

== ENCOUNTER 2025-05-13 22:07 | Outpatient (CLI) | payer BC, SELFPAY ==
[2025-05-13 22:38] VITALS: BP 131/59; PULSE 94
[2025-05-13 22:39] VITALS: PULSE 104; O2SAT 97
[2025-05-13 23:16] LABS: Appearance Urine Clear (Clear)
[2025-05-13 23:19] LABS: Trichomonas No Trichomonas Seen (None Seen)
[2025-05-13] MEDS: BETAMETHASONE SOD PHOS/ACETATE 6 MG/ML ML 12 MG IM (23:40)
[2025-05-13 23:54] LABS: Fetal Fibronectin* Negative (Negative)
--- NOTE | 2025-05-14 00:08 | CRLHL7_ITS ---
For Patients: As a result of the Century Cures Act, medical imaging exams and procedure reports are released immediately into your electronic medical record. You may view this report before your referring provider. If you have questions, please contact your health care provider. INDICATION: contractions. TECHNIQUE: Ultrasound OB pelvis transvaginal limited. Grayscale and color Doppler imaging of the pelvis was performed in the cervical region. COMPARISON: None. FINDINGS/IMPRESSION: The cervical length measures approximately 3.8 cm and appears closed. Dictated by Ramy Ellis MD @ 05/14/2025 1:42:14 AM (Electronically Signed)
--- NOTE | 2025-05-14 01:21 | W.PM.OBTRAN ---
History of Present Illness History of Present Illness Time Seen by Provider: 01:30 History of Present Illness: Ginette is a 29 year old at 33w3d GA who presents with vaginal pressure and left flank pain. She is an outside patient, no records available. is reportedly uncomplicated. She has had 2 prior vaginal deliveries that were at term. Patient presented to the emergency department with what she described as vaginal pressure and left-sided flank pain - transferred to Ob triage. She was noted to be javier about every 5-8 minutes on arrival. Denies vaginal bleeding or leaking of fluid. Endorses active movement. No known abnormal vulvovaginal discharge, itching or burning. No dysuria, urgency/frequency or hematuria. Meds Home Medications and Allergies Home Medications ?Medication ?Instructions ?Recorded ?Confirmed ?Type magnesium glycinate mg PO 05/13/25 History Allergies Allergy/AdvReac Type Severity Reaction Status Date / Time pine nut Allergy Severe Anaphylaxis Verified 05/13/25 22:21 ciprofloxacin (From Cipro) Allergy Intermediate Verified 05/13/25 22:21 caffeine Allergy Mild Dizziness Verified 05/13/25 22:21 PFSH Social History Smoking Status: Former smoker History History 4 Elective abortions Para 2 Spontaneous abortions Hx # Term Pregnancies Ectopic pregnancies Hx # Pregnancies Multiple births Number of Living Children 2 OB - H&P: Exam Physical Exam Vital signs: Pulse BP Pulse Ox 94 131/59 L 97 05/13/25 22:38 05/13/25 22:38 05/13/25 22:39 Narrative: VS WNL. General: Alert and oriented, in no acute distress. Resting comfortable including during contractions. Abdomen: Gravid. Vertex. Cervix: 2/50/-3 to 3/75/-1 on 2 hour recheck NST: Reactive and reassuring Baring: Contractions q5-8m Results Labs Laboratory Tests 05/13/25 05/13/25 Range/Units Unknown 22:33 Urine Color Yellow (Yellow) Urine Appearance Clear (Clear) Urine pH 6.0 (5.0-8.5) Ur Specific Morton 1.025 (1.000-1.030) Urine Protein Trace A (Negative) Urine Glucose (UA) 2+ A (Negative) Urine Ketones Negative (Negative) Urine Blood Trace-intact A (Negative) Urine Nitrite Negative (Negative) Urine Bilirubin Negative (Negative) Urine Urobilinogen 0.2 (0.2-1.0) Ur Leukocyte Esterase Negative (Negative) Urine RBC 2-5 A (0-2) Urine WBC 0-2 (0-5) Ur Squamous Epith Cells Few (None-Few) Amorphous Sediment Few A (None) Urine Bacteria Few A (None) Urine Mucus Few A (None) Vaginal Trichomonas No Trichomonas Seen (None Seen) Vaginal Yeast No Yeast Seen (None Seen) Vaginal Clue Cells <20% Clue Cells Seen A (None Seen) Group B Strep DNA Pending Fibronectin Negative (Negative) Assessment and Plan Assessment and plan (1) labor: Status: Acute (2) 33 weeks gestation of : Status: Acute Plan Ginette is a 29 year old at 33w3d GA who presents with vaginal pressure and left flank pain, found to be javier q5-8 minutes. She has had care at a different facility, no records available. is reportedly uncomplicated. She has had 2 prior vaginal deliveries that were at term. Evaluation was started with FFN, wet prep, UA/UC. Cervical exam was performed and noted to be 2/50/-3. Abdominal ultrasound was requested to evaluate for potential stone/hydronephrosis, which was found to be within normal limits. Tech report is only available at this time, formal radiology read pending. A cervical length was requested and was measured at 3.57cm in shortest length. UA returned with the presence of glucose in her urine, trace protein, trace blood, 2-5 RBCs, few bacteria and mucus. No white blood cells, leukocyte esterase or nitrates to suggest UTI. Wet prep subsequently returned as within normal limits, with less than 20% clue cells. fibronectin was negative. On cervical recheck 2 hours later, cervical change was noted to 3/75/-1. Patient notes contractions about every 5 minutes, rated as 3-4 in severity. Still no vaginal bleeding or leaking fluids. Active movement. BMZ #1 was administered at 2333. Transfer was requested to [facility], as we suspect this is her intended delivery hospital as she has had her care in [place]. Accepting physician is Dr. Kamla Doyle. We discussed tocolysis, where 20mg nifedipine was given prior to transport. GBS obtained and pending.
[2025-05-14 01:50] VITALS: BP 135/62; PULSE 105
--- NOTE | 2025-05-14 02:15 | PC.OBNST ---
NST Note NST Note Start: 05/13/25 22:13 Freq: ONCE Status: Active Protocol: Document 05/14/25 02:13 [facility] (Rec: 05/14/25 02:15 [facility] No Response) NST Note 4 Para (# of births) 2 EDC 06/28/25 Gestational Age In 33 Weeks & 4 Days Weeks & Days Patient Presented Contractions/cramping with Complaint(s) of Reactive Yes Appropriate for Yes Gestational Age MONICA Sotelo RNC Date 05/14/25 Reactive Yes Appropriate for Yes Gestational Age MONICA Mcmillan RN Date 05/14/25 OB NST charge Yes Complete NST Note Yes via Write Note The provider's electronic signature indicates the NST is reactive/appropriate for gestational age. *Note to provider: If an addendum is required, open the patient's chart and click on the note under the Nurse/Allied Health tab.
[2025-05-14 20:11] LABS: Strep B DNA Probe Negative (Negative)
--- NOTE | 2025-05-14 23:04 | CRLHL7_ITS ---
For Patients: As a result of the Century Cures Act, medical imaging exams and procedure reports are released immediately into your electronic medical record. You may view this report before your referring provider. If you have questions, please contact your health care provider. INDICATION: Flank pain. TECHNIQUE: Ultrasound abdomen complete. Sonographic images of the entire abdomen were obtained using talley-scale and color Doppler. COMPARISON: None. FINDINGS: Liver: Normal in size and echotexture. No masses. No intrahepatic biliary dilatation. Gallbladder: No stones or sludge. Normal wall thickness. No pericholecystic fluid. Negative sonographic Pineda`s sign. Common bile duct: 2 mm. Pancreas: Normal in size and appearance. Spleen: Normal in size and appearance. Kidneys: Both kidneys are normal in size. Normal echotexture and cortex. No suspicious masses or hydronephrosis. Vasculature: Proximal abdominal aorta and IVC are normal in caliber. Patent main portal vein with hepatopetal flow. IMPRESSION: Unremarkable abdomen ultrasound. Dictated by Ramy Ellis MD @ 05/14/2025 1:38:31 AM (Electronically Signed)
[2025-05-15 09:13] LABS: Strep B Susceptibility Needed? No
== END 2025-05-14 02:05 | disposition short-term general hospital (02) ==
LOC: OB OUT 22:08 → OB 22:09
PROVIDERS: Visit Provider Obstetrics & Gynecology
DX: O47.03 False labor before 37 completed weeks of gestation, third trimester (principal); Z3A.33 33 weeks gestation of pregnancy
CPT/HCPCS: 59025; 76700; 76815; 76817; 81001; 81003; 84112; 87081; 87086; 87210; 87653; G0463; A9270; J0702

== ENCOUNTER 2025-05-14 02:02 | Outpatient (CLI) | payer BC, SELFPAY | END 2025-05-14 02:03 | disposition home or self-care (01) | LOC: AMB 05-17 17:52 | PROVIDERS: Visit Provider Family Medicine | DX: O47.03 False labor before 37 completed weeks of gestation, third trimester (principal); Z3A.33 33 weeks gestation of pregnancy | CPT/HCPCS: A0425; A0427 ==

== ENCOUNTER 2025-05-29 22:26 | Outpatient (CLI) | payer BC, SELFPAY ==
[2025-05-29 22:51] VITALS: BP 121/63; PULSE 116; PULSE 117; O2SAT 94
[2025-05-29 22:52] VITALS: PULSE 109; O2SAT 97
[2025-05-29 23:05] VITALS: PULSE 106; O2SAT 98
[2025-05-29 23:10] VITALS: PULSE 116; O2SAT 97
[2025-05-29 23:15] VITALS: PULSE 104; O2SAT 96
[2025-05-29] MEDS: METOCLOPRAMIDE 10 MG TABLET PO (23:36)
[2025-05-29 23:38] LABS: Amnisure Rom* Negative
[2025-05-29 23:39] LABS: Trichomonas No Trichomonas Seen (None Seen)
--- NOTE | 2025-05-30 01:38 | PC.OBNST ---
NST Note NST Note Start: 05/29/25 22:36 Freq: ONCE Status: Active Protocol: Document 05/30/25 01:37 ALZ (Rec: 05/30/25 01:38 ALZ [id number]) NST Note Para (# of births) 2 EDC 06/28/25 Gestational Age In 35 Weeks & 6 Days Weeks & Days Patient Presented Contractions/cramping,Leaking fluid,Headache with Complaint(s) of Reactive Yes Appropriate for Yes Gestational Age MONICA Verma RN Date 05/30/25 Reactive Yes Appropriate for Yes Gestational Age MONICA Brooks RNC Date 05/30/25 OB NST charge Yes Complete NST Note Yes via Write Note The provider's electronic signature indicates the NST is reactive/appropriate for gestational age. *Note to provider: If an addendum is required, open the patient's chart and click on the note under the Nurse/Allied Health tab.
== END 2025-05-30 01:20 | disposition home or self-care (01) ==
LOC: OB OUT 22:28 → OB 22:29
PROVIDERS: Visit Provider Student in an Organized Health Care Education/Training Program
DX: O47.03 False labor before 37 completed weeks of gestation, third trimester (principal); Z3A.35 35 weeks gestation of pregnancy
CPT/HCPCS: 59025; 84112; 87210; G0463; A9270

== ENCOUNTER 2025-06-06 22:25 | Outpatient (CLI) | payer BC, SELFPAY ==
[2025-06-06 23:06] VITALS: RESP 16; TEMP 36.9
[2025-06-06 23:07] VITALS: BP 126/58; PULSE 101
--- NOTE | 2025-06-07 02:35 | PC.OBNST ---
NST Note NST Note Start: 06/06/25 22:38 Freq: ONCE Status: Active Protocol: Document 06/07/25 02:34 [facility] (Rec: 06/07/25 02:35 [facility] [id number]) NST Note 4 Para (# of births) 2 EDC 06/28/25 Gestational Age In 37 Weeks & 0 Days Weeks & Days Patient Presented Contractions/cramping with Complaint(s) of Reactive Yes RN Gaetano Quintero Date 06/07/25 Reactive Yes RN Beatrice Murillo RN Date 06/07/25 OB NST charge Yes Complete NST Note Yes via Write Note The provider's electronic signature indicates the NST is reactive/appropriate for gestational age. *Note to provider: If an addendum is required, open the patient's chart and click on the note under the Nurse/Allied Health tab.
== END 2025-06-07 00:35 | disposition home or self-care (01) ==
LOC: OB OUT 22:27 → OB 22:27
PROVIDERS: Visit Provider Family Medicine
DX: O47.1 False labor at or after 37 completed weeks of gestation (principal); Z3A.37 37 weeks gestation of pregnancy
CPT/HCPCS: 59025; G0463

== ENCOUNTER 2025-06-12 10:21 | Outpatient (CLI) | payer BC, SELFPAY ==
[2025-06-12 10:50] VITALS: PULSE 105; O2SAT 96
[2025-06-12 10:55] VITALS: PULSE 99; O2SAT 97
[2025-06-12 11:00] VITALS: PULSE 100; O2SAT 97
[2025-06-12 11:02] VITALS: RESP 18; TEMP 36.8
[2025-06-12 11:03] VITALS: BP 120/66; PULSE 100
--- NOTE | 2025-06-12 14:24 | PC.OBNST ---
NST Note NST Note Start: 06/12/25 10:43 Freq: ONCE Status: Active Protocol: Document 06/12/25 14:22 TATIANA (Rec: 06/12/25 14:23 [facility]AT[facility]NA Desktop) NST Note 4 Para (# of births) 2 EDC 06/28/25 Gestational Age In 37 Weeks & 5 Days Weeks & Days Patient Presented Contractions/cramping with Complaint(s) of Reactive Yes Appropriate for Yes Gestational Age MONICA De Santiago Date 06/12/25 Reactive Yes Appropriate for Yes Gestational Age MONICA Granda Date 06/12/25 OB NST charge Yes Complete NST Note Yes via Write Note The provider's electronic signature indicates the NST is reactive/appropriate for gestational age. *Note to provider: If an addendum is required, open the patient's chart and click on the note under the Nurse/Allied Health tab.
== END 2025-06-12 13:25 | disposition home or self-care (01) ==
LOC: OB OUT 10:36 → OB 10:38
PROVIDERS: Visit Provider Advanced Practice Midwife
DX: O47.1 False labor at or after 37 completed weeks of gestation (principal); Z3A.37 37 weeks gestation of pregnancy
CPT/HCPCS: 59025; G0463

== ENCOUNTER 2025-06-15 13:02 | Outpatient (CLI) | payer BC, SELFPAY ==
--- NOTE | 2025-06-15 13:00 | CRLHL7_ITS ---
For Patients: As a result of the Cures Act, medical imaging exams and procedure reports are released immediately into your electronic medical record. You may view this report before your referring provider. If you have questions, please contact your health care provider. OB ULTRASOUND BIOPHYSICAL PROFILE LMP: 09/21/2024. TYRON by LMP: 06/28/2025. GA: 38 w, 1 d. Single. Comparison: Prior done at [facility]. INDICATION: Polyhydramnios. TECHNIQUE: Real time talley scale imaging of the fetus was performed. Transabdominal imaging performed. FINDINGS CERVIX: Not Visualized. POSITIONING: Vertex. AMNIOTIC FLUID: 33.9 cm. BRIGITTE. 10.7 cm SDP (N: greater than 2 x 1 cm) BIOPHYSICAL PROFILE: Gross body movements: 2. tone: 2. Respiratory activity: 2. Amniotic fluid: 2. SDP (N: greater than 2 x 1 cm). Total score: 8. PLACENTA: Technique: Transabdominal. PLACENTA POSITION: Anterior. DOPPLER: heart rate: 150 bpm. IMPRESSION: 1) Normal biophysical profile 8/8. 2) Amniotic fluid single deepest pocket 10.7 cm. BRIGITTE 33.9 cm. JAIR HIGH M.D. Diagnostic Radiologist [email or web address] DW/Dictated by: Jair High MD @ 06/19/2025 10:34:00 PM (Electronically Signed)
== END 2025-06-15 13:03 | disposition home or self-care (01) ==
LOC: US 13:03
PROVIDERS: Visit Provider Physician Assistant
DX: O40.3XX0 Polyhydramnios, third trimester, not applicable or unspecified (principal); Z3A.38 38 weeks gestation of pregnancy
CPT/HCPCS: 76819

== ENCOUNTER 2025-06-17 22:02 | Outpatient (CLI) | payer BC, SELFPAY ==
[2025-06-17 22:13] VITALS: BMI 40.7
[2025-06-17 22:29] VITALS: BP 113/58; PULSE 102
[2025-06-17 22:30] VITALS: RESP 16; TEMP 36.8
[2025-06-17 22:46] LABS: Appearance Urine Clear (Clear)
[2025-06-17 22:54] LABS: Amnisure Rom* Negative
--- NOTE | 2025-06-18 00:42 | PC.OBNST ---
NST Note NST Note Start: 06/17/25 22:10 Freq: ONCE Status: Active Protocol: Document 06/18/25 00:41 MANISHA (Rec: 06/18/25 00:42 MANISHA No Response) NST Note 4 Para (# of births) 2 EDC 06/28/25 Gestational Age In 38 Weeks & 4 Days Weeks & Days Patient Presented Contractions/cramping,Leaking fluid with Complaint(s) of Reactive Yes Appropriate for Yes Gestational Age MONICA Aj RNC Date 06/18/25 Reactive Yes Appropriate for Yes Gestational Age MONICA Dooley, RN Date 06/18/25 OB NST charge Yes Complete NST Note Yes via Write Note The provider's electronic signature indicates the NST is reactive/appropriate for gestational age. *Note to provider: If an addendum is required, open the patient's chart and click on the note under the Nurse/Allied Health tab.
== END 2025-06-18 00:30 | disposition home or self-care (01) ==
LOC: OB OUT 22:03 → OB 22:10
PROVIDERS: Visit Provider Obstetrics & Gynecology
DX: O47.1 False labor at or after 37 completed weeks of gestation (principal); Z3A.38 38 weeks gestation of pregnancy
CPT/HCPCS: 59025; 81001; 81003; 84112; 87086; G0463